=== PATIENT | male | born 1985 | race Caucasian/White ===

== ENCOUNTER 2023-09-20 15:11 | Emergency (ER) | payer BC, SELFPAY ==
[2023-09-20 15:13] VITALS: BP 123/79
--- NOTE | 2023-09-20 16:37 | ED.GENMED ---
History of Present Illness
General
Chief Complaint: Rabies
Source: patient
Exam Limitations: none
Time Seen by Provider: 09/20/23 16:05
Nursing documentation reviewed up to this point in time: agreed with
Travel History
Have you had any contact with someone who has COVID-19?: No
Do you have any symptoms of coronavirus? Fever > 100 degrees, chills, cough, shortness of breath, sore throat, loss of taste or smell, muscle aches, or headache?: No
History of Present Illness
History of Present Illness:
Patient is a 37-year-old male who is here for rabies vaccine. Patient dog got attacked by a miner and's he was in contact with his dog and his dog's wound and was sent here for rabies vaccine. He has no injuries.
Review of Systems
Review of Systems
Allergies reviewed?: Yes
All Other Systems: ROS reviewed and negative except as documented in HPI and ROS
Constitutional: Reports no symptoms
Respiratory: Reports no symptoms
Cardiac: Reports no symptoms
ABD/GI: Reports no symptoms
Skin: Reports no symptoms
Neurological: Reports no symptoms
Psychiatric: Reports no symptoms
Phy Exam
General Physical Exam
General Presentation: no apparent distress
General age: appears stated age
General Skin: warm and dry
General Habitus: normal
General Mental: alert
General Hydration: appears well hydrated
Neurological Exam
Neurological Exam: alert and oriented x3
Musculoskeletal Exam
Musculoskeletal Exam: full ROM
Skin Exam
Skin Exam: normal color and warm/dry
Psychiatric Exam
Psychiatric Exam: normal mood/affect
Course
Orders/Labs/Results
Orders:
Orders
09/20/23 16:53
Rabies Immune Globulin/Pf [HyperRAB] 1,832 unit IM NOW STA
09/20/23 17:00
Rabies Vaccine (Pcec)/Pf [Rabavert Rabies Vacc W-Diluent] 2.5 unit IM .ONCE ONE
Vital Signs
Initial and Last Documented VS:
Initial Vital Signs
Temp Pulse Resp BP Pulse Ox
98.3 F 78 20 123/79 97
09/20/23 15:13 09/20/23 15:13 09/20/23 15:13 09/20/23 15:13 09/20/23 15:13
Last Documented Vital Signs
Temp Pulse Resp BP Pulse Ox
98.3 F 78 20 123/79 97
09/20/23 15:13 09/20/23 15:13 09/20/23 15:13 09/20/23 15:13 09/20/23 15:13
MDM/Problems Addressed
Differential Diagnosis Includes:
not limited to: encounter for rabies vaccine
MDM/Problems Addressed:
Patient was given rabies immunoglobulin and vaccine as documented. Patient with no injuries
*Pulse Oximetry
Patient hypoxic: no
*Critical Care Note
Total Time (30-74mins, 75-104mins- exclusive of procedures): Not Applicable
ED Attending Note
-
Portions of this chart may have been created with voice recognition software.� Occasional wrong word or��sound alike� substitutions may have occurred due to the inherent limitations of voice recognition software.
Discharge Plan
Departure
Patient Disposition: Home (Routine Discharge)
Date of Disposition: 09/20/23
Time of Disposition: 17:56
Patient with high blood pressure during this ER visit?: No
Condition: Fair
Covid-19: Not Applicable
Discharge Problem:
encounter for rabies vacccine
Referrals:
Willie Krueger DO [Family Provider] -
Stand Alone Forms: Rabies Vaccine Post Exp Dosing
Activity Restrictions/Additional Instructions:
As discussed for additional rabies vaccines you may go to the infusion center peer return if any worsening of symptoms.
Interventions
Interventions:
*Risk Screen - Suicide Last Done: 09/20/23 15:13
*General Assessment Last Done: 09/20/23 15:13
*Neglect/Abuse Screening Last Done: 09/20/23 15:13
*Nursing Disposition Last Done: 09/20/23 18:26
Discharge Date and Time
Discharge Date/Time: 09/20/23 18:27
Print Language: BELARUSIAN
[2023-09-20] MEDS: RABAVERT RABIES VACC W-DILUENT 2.5 UNIT IM (17:39)
[2023-09-20] MEDS: HyperRAB 1832 UNIT IM (17:40)
== END 2023-09-20 18:27 | disposition home or self-care (01) ==
LOC: EMR 15:11
PROVIDERS: EMERGENCY PHYSICIAN Emergency Medicine; FAMILY PHYSICIAN Family Medicine
DX: Z23 Encounter for immunization (principal); Z20.3 Contact with and (suspected) exposure to rabies
CPT/HCPCS: 99284; 90471; 96372; 90375; 90675

== ENCOUNTER 2023-09-28 14:34 | Outpatient (RCR) | payer BC, SELFPAY ==
[2023-09-23 13:57] VITALS: BP 125/70
[2023-09-23] MEDS: RABAVERT RABIES VACC W-DILUENT 2.5 UNIT IM (14:04)
[2023-09-28 14:55] VITALS: BP 117/69
[2023-09-28] MEDS: RABAVERT RABIES VACC W-DILUENT 2.5 UNIT IM (15:07)
== END 2023-09-29 09:20 | disposition home or self-care (01) ==
LOC: OID 14:34
PROVIDERS: ATTENDING PHYSICIAN Emergency Medicine; FAMILY PHYSICIAN Family Medicine
DX: Z20.3 Contact with and (suspected) exposure to rabies (principal); Z23 Encounter for immunization
CPT/HCPCS: 90471; 90675

== ENCOUNTER 2023-10-04 15:12 | Outpatient (RCR) | payer BC, SELFPAY ==
[2023-10-04] MEDS: RABAVERT RABIES VACC W-DILUENT 2.5 UNIT IM (15:31)
[2023-10-04 15:37] VITALS: BP 125/79
== END 2023-10-05 08:28 | disposition home or self-care (01) ==
LOC: OID 15:12
PROVIDERS: ATTENDING PHYSICIAN Emergency Medicine; FAMILY PHYSICIAN Family Medicine
DX: Z20.3 Contact with and (suspected) exposure to rabies (principal); Z23 Encounter for immunization
CPT/HCPCS: 90471; 90675

== ENCOUNTER → 2025-02-20 10:30 | Outpatient (REF) | payer BC, SELFPAY | LOC: HWRAD 10:30 | PROVIDERS: ATTENDING PHYSICIAN Family Medicine | DX: T14.8XXA Other injury of unspecified body region, initial encounter (principal) | CPT/HCPCS: 73590 ==

== ENCOUNTER → 2025-03-13 14:06 | Outpatient (REF) | payer BC, SELFPAY | LOC: RAD 14:06 | PROVIDERS: ATTENDING PHYSICIAN Family Medicine | DX: R10.9 Unspecified abdominal pain (principal); K21.9 Gastro-esophageal reflux disease without esophagitis | CPT/HCPCS: 76700 ==

== ENCOUNTER 2025-04-04 10:30 | Observation (INO) | payer BC, SELFPAY ==
[2025-04-03 14:26] VITALS: BP 150/94
[2025-04-03 15:23] LABS: Hematocrit 42.8 % (39.0-52.0); Hemoglobin 15.0 g/dL (13.0-18.0); Mean Corp Hgb Conc. 35.0 g/dL (33.0-37.0); Mean Corpuscular Volume 85.9 fL (80.0-94.0); Nucleated Red Blood Cells % 0 % (-); Platelet Count 265 10^3/uL (130-400); Red Cell Dist. Width 11.9 % (11.5-14.5)
[2025-04-03 15:36] LABS: ALT (SGPT) 24 U/L (0-50); AST (SGOT) 23 U/L (17-59); Albumin 4.8 g/dl (3.5-5.0); Alkaline Phosphatase 79 U/L (38-126); Blood Urea Nitrogen 15 mg/dl (9-20); Calcium 9.7 mg/dl (8.4-10.2); Carbon Dioxide 30 mmol/L (22-30); Chloride 99 mmol/L (98-107); Glucose 72 mg/dl (70-99); Potassium 4.5 mmol/L (3.5-5.1); Sodium 136 mmol/L (135-145); Total Protein 7.9 g/dl (6.3-8.2); eGFR > 60.00
[2025-04-03] MEDS: ZOSYN 50 IV ×2 (15:48→21:27)
--- NOTE | 2025-04-03 16:13 | ED.GENMED ---
History of Present Illness
<Dirk Tovar PA-C - Last Filed: 04/03/25 16:53>
General
Chief Complaint: Abdominal Pain
Source: patient
Time Seen by Provider: 04/03/25 15:40
History of Present Illness
History of Present Illness:
39-year-old male with no significant past medical history presents to the emergency department for evaluation of right lower quadrant abdominal pain that has waxed and waned for around 1 week, had a CT scan ordered by his primary care provider as an
outpatient, sent to the ER after his CT scan showed acute appendicitis. Patient states that his pain is tolerable although when pressing in the right lower quadrant he does have considerable pain. He did not take anything for the pain prior to
arrival and is currently declining anything for the pain. Denies any fevers or infectious symptoms.
Past History
<Dirk Tovar PA-C - Last Filed: 04/03/25 16:53>
Past History
ED Past Medical History: None
ED Past Surgical History: Tonsilectomy and Urological
Social History
Tobacco: Non-smoker
Alcohol: Occasional
Drug: None
Personal:
Living: with family
Review of Systems
<Dirk Tovar PA-C - Last Filed: 04/03/25 16:53>
Review of Systems
All Other Systems: ROS reviewed and negative except as documented in HPI and ROS
Phy Exam
<Dirk Tovar PA-C - Last Filed: 04/03/25 16:53>
Physical Exam
Physical Exam:
GENERAL: Alert , in no apparent distress
EYE: clear conjunctiva b/l
HEAD: NCAT
ENT: mmm.
CARDIAC: Regular rate and rhythm .
LUNGS: Clear breath sounds bilaterally, no acute respiratory distress, no wheezes/rales/rhonchi
ABDOMEN: Soft, RLQ ttp with guarding.
NEUROLOGICAL: Alert and oriented
SKIN: Warm and dry, skin intact.
MUSCULOSKELETAL: No edema, well perfused.
PSYCH: Normal and appropriate interaction.
Scores
<Dirk Tovar PA-C - Last Filed: 04/03/25 16:53>
Heart Failure Risk
Heart Failure Risk Score: Not Applicable
Heart Score for Chest Pain Patients
STEMI patient?: Not applicable
Withdrawal Assessment of Alcohol
Withdrawal Assessment Completed?: Not applicable
Course
<Dirk Tovar PA-C - Last Filed: 04/03/25 16:53>
Orders/Labs/Results
Orders:
Orders
04/03/25 15:11
CMP [Comprehensive Metabolic Panel] Urgent
Complete Blood Count/With Diff Urgent
04/03/25 15:45
Piperacillin/Tazo 3.375 Gram [Zosyn] 3.375 gram in 50 ml IV NOW
04/03/25 16:46
Fentanyl Citrate/Pf [Sublimaze] 25 mcg IV [id number] PRN
HYDROmorphone [Dilaudid] 0.25 mg IV PACU-Q5MPRN PRN
HYDROmorphone [Dilaudid] 0.5 mg IV PACU-Q5MPRN PRN
Ondansetron Injectable [Zofran] 4 mg IV PACU-ONCEPRN PRN
Prochlorperazine [Compazine] 5 mg IV PACU-ONCEPRN PRN
Notify MD As Directed
Notify physician if: for SDS patients with known or suspected sleep obstructive sleep apnea, monitor in the
PACU.
Notify MD for any apneic/desaturation episodes
O2 Therapy [RESP] Urgent
Titrate/Wean O2 to maintain O2 sat greater than (%): 92
Special Instructions: -Provide supplemental oxygen to achieve O2 sat of 92% or greater.
-After 15 min, may wean O2 and discontinue if patient is able to maintain O2 sat of 92%
or greater during recovery period.
If patient is a discharge home, without oxygen therapy, notify anestheiologist if
unable to maintain O2 SAT of 92% or greater on room air for MD clearance.
04/03/25 17:00
Normosol (Mult Electrolytes) [Normosol-R/Plasmalyte-A] 1,000 ml IV PER PROTOCOL
04/03/25 15:11
04/03/25 15:11
Vital Signs
Initial and Last Documented VS:
Initial Vital Signs
Temp Pulse Resp BP Pulse Ox
36.6 C 56 18 150/94 100
04/03/25 14:26 04/03/25 14:26 04/03/25 14:26 04/03/25 14:26 04/03/25 14:26
Last Documented Vital Signs
Temp Pulse Resp BP Pulse Ox
36.6 C 56 18 150/94 100
04/03/25 14:26 04/03/25 14:26 04/03/25 14:26 04/03/25 14:26 04/03/25 16:13
Beault;Dedrick Flores, DO - Last Filed: 04/03/25 16:58>
Orders/Labs/Results
Orders:
Orders
04/03/25 15:11
CMP [Comprehensive Metabolic Panel] Urgent
Complete Blood Count/With Diff Urgent
04/03/25 15:45
Piperacillin/Tazo 3.375 Gram [Zosyn] 3.375 gram in 50 ml IV NOW
04/03/25 16:46
Fentanyl Citrate/Pf [Sublimaze] 25 mcg IV [id number] PRN
HYDROmorphone [Dilaudid] 0.25 mg IV PACU-Q5MPRN PRN
HYDROmorphone [Dilaudid] 0.5 mg IV PACU-Q5MPRN PRN
Ondansetron Injectable [Zofran] 4 mg IV PACU-ONCEPRN PRN
Prochlorperazine [Compazine] 5 mg IV PACU-ONCEPRN PRN
Notify MD As Directed
Notify physician if: for SDS patients with known or suspected sleep obstructive sleep apnea, monitor in the
PACU.
Notify MD for any apneic/desaturation episodes
O2 Therapy [RESP] Urgent
Titrate/Wean O2 to maintain O2 sat greater than (%): 92
Special Instructions: -Provide supplemental oxygen to achieve O2 sat of 92% or greater.
-After 15 min, may wean O2 and discontinue if patient is able to maintain O2 sat of 92%
or greater during recovery period.
If patient is a discharge home, without oxygen therapy, notify anestheiologist if
unable to maintain O2 SAT of 92% or greater on room air for MD clearance.
04/03/25 17:00
Normosol (Mult Electrolytes) [Normosol-R/Plasmalyte-A] 1,000 ml IV PER PROTOCOL
04/03/25 15:11
04/03/25 15:11
Vital Signs
Initial and Last Documented VS:
Initial Vital Signs
Temp Pulse Resp BP Pulse Ox
36.6 C 56 18 150/94 100
04/03/25 14:26 04/03/25 14:26 04/03/25 14:26 04/03/25 14:26 04/03/25 14:26
Last Documented Vital Signs
Temp Pulse Resp BP Pulse Ox
36.6 C 56 18 150/94 100
04/03/25 14:26 04/03/25 14:26 04/03/25 14:26 04/03/25 14:26 04/03/25 16:13
<Dirk Tovar PA-C - Last Filed: 04/03/25 16:53>
MDM/Problems Addressed
Differential Diagnosis Includes:
Known Appendicitis based off CT done as outpatient
MDM/Problems Addressed:
39 year old male presents to ED after outpatient CT scan showed acute appendicitis. Pain controlled. Will notify surgery. Advised to stay NPO.
<Dirk Tovar PA-C - Last Filed: 04/03/25 16:53>
*Radiology
Radiology exam reviewed: radiology read reviewed
*Pulse Oximetry
SaO2: 100
Oxygen Mode of Delivery: Room air
Patient hypoxic: no
*Critical Care Note
Total Time (30-74mins, 75-104mins- exclusive of procedures): Not Applicable
<Dirk Tovar PA-C - Last Filed: 04/03/25 16:53>
Patient Management
Discussion with other providers: Classifier Operator
Escalation/DeEscalation of care consider admission/obs:
General surgery to admit patient for acute appendicitis
ED Attending Note
<Dirk Tovar PA-C - Last Filed: 04/03/25 16:53>
-
Portions of this chart may have been created with voice recognition software.� Occasional wrong word or��sound alike� substitutions may have occurred due to the inherent limitations of voice recognition software.
<Dedrick Flores DO - Last Filed: 04/03/25 16:58>
ED Attending Note
I performed the substantive portion of visit, reviewed & personally made and approve the management plan that is documented in note by myself or MAGDIEL.: Yes
ED Attending Note:
I reviewed the case with the PA. White count normal. Outpatient CAT scan from 04-26 with oral and IV contrast which showed 6 appendicitis. Cipro was sent to the patient was taken to the OR for management.
Discharge Plan
Departure
Patient Disposition: Admit
Date of Disposition: 04/03/25
Time of Disposition: 16:13
Presentation/result/management discussed w/ accepting MD/DO: Dr. Rich
Discharge Problem:
Acute appendicitis
Prescriptions:
No Action
Theragen Tablet
1 tab PO DAILY
ibuprofen [Advil] 200 mg Tablet
200 mg PO Q6HPRN PRN (Reason: mild pain)
amoxicillin-pot clavulanate [Augmentin] 875-125 mg Tablet
1 tab PO BID
Rx Instructions:
for 10 days starting 04/02/25
Referrals:
Silvino Gutiérrez MD [Family Provider, Family Practice]
Interventions
Interventions:
*Risk Screen - Suicide Last Done: 04/03/25 14:22
*Neglect/Abuse Screening Last Done: 04/03/25 14:23
[facility] Fall Risk Assessment Tool Last Done: 04/03/25 15:39
DM-Jtunlw-Fhluqzdduq Assessment Last Done: 04/03/25 15:30
Discharge Date and Time
Print Language: MACEDONIAN
[2025-04-03 18:32] VITALS: BP 125/78; BMI 31.8
[2025-04-03] MEDS: TYLENOL 650 MG PO (21:27)
[2025-04-03 23:00] VITALS: BP 109/62
[2025-04-03 23:02] LABS: C-Reactive Protein 44.80 mg/L (0.0-10.00)
[2025-04-04] MEDS: TYLENOL PO (02:05)
[2025-04-04] MEDS: ZOSYN 50 IV ×2 (04:08→09:35)
[2025-04-04] MEDS: TYLENOL 650 MG PO ×2 (04:08→09:34)
--- NOTE | 2025-04-04 07:53 | W.PN.GS2 ---
Today's Communication / Plan
-
-- Regular diet
-- Abx: Zosyn, plan for 14 days total abx with PO Augmentin
-- DC pending dietary tolerance and labs
Assessment / Plan
-
Patient is a 39 yo M p/w acute appendicitis
AVSS
CRP elevated on admission, repeat pending
As noted on admission H&P, options for management were reviewed and given the delay in presentation and degree of appendicitis will trial a period of medical management with antibiotics in the hopes of delaying to interval appendectomy.
-- Regular diet
-- Pain control: Tylenol, Toradol, IV Dilaudid
-- Abx: Zosyn, plan for 14 days total abx with PO Augmentin
-- DVT: SCDs and ambulation
-- DC pending dietary tolerance and labs
Subjective Data
-
Date of Service: April 04, 2025
No new complaints. Pain feels similar to yesterday evening. No nausea or vomiting. Passing flatus. Afebrile.
Objective Data
-
Intake and Output
04/03/25 04/04/25 04/05/25
06:59 06:59 06:59
Intake Total 480 / 480
Balance 480 / 480
Intake:
Oral fluids 480 / 480
Other:
Number of approximated MODERATE 4
amounts of urine
Vital Signs
Temp Pulse Resp BP Pulse Ox
97.7 F 65 16 109/62 97
04/03/25 23:00 04/03/25 23:00 04/03/25 23:00 04/03/25 23:00 04/03/25 23:00
Lab Results
04/03/25 15:11
04/03/25 15:11
Calcium 9.7 mg/dl (8.4-10.2) 04/03/25 15:11
Total Bilirubin 1.0 mg/dl (0.2-1.3) 04/03/25 15:11
AST 23 U/L (17-59) 04/03/25 15:11
ALT 24 U/L (0-50) 04/03/25 15:11
Alkaline Phosphatase 79 U/L (38-126) 04/03/25 15:11
Total Protein 7.9 g/dl (6.3-8.2) 04/03/25 15:11
Albumin 4.8 g/dl (3.5-5.0) 04/03/25 15:11
Physical Exam
-
Gen: NAD
Abd: soft, mild tenderness in RLQ (improved), ND, non-peritoneal
Patient has a palomares catheter: No
Patient has a central line: No
[2025-04-04 07:59] VITALS: BP 125/71
[2025-04-04 09:59] LABS: C-Reactive Protein 35.80 mg/L (0.0-10.00)
--- NOTE | 2025-04-04 10:20 | CM ---
Patient seen at bedside
discharge today
IA completed
OBS status - form explained & signed. In chart
Lives with in 1 story home
PLOF: independent
Denies DME
Denies VN/Rehab
Denies insecurities
PCP: Dr. Gutiérrez
Pharmacy: [address], [place]
PLAN: Home, no needs
to transport
== END 2025-04-04 11:36 | disposition home or self-care (01) ==
LOC: 3 WEST ACU 10:30
PROVIDERS: ADMITTING PHYSICIAN Surgery; ATTENDING PHYSICIAN Surgery; EMERGENCY PHYSICIAN Emergency Medicine; FAMILY PHYSICIAN Family Medicine
DX: K35.80 Unspecified acute appendicitis (principal)
CPT/HCPCS: 74177; 80053; 85025; 86140; 96365; 99284; G0378; Q9967

== ENCOUNTER → 2025-04-18 08:01 | Outpatient (REF) | payer BC, SELFPAY | LOC: RAD 08:01 | PROVIDERS: ATTENDING PHYSICIAN Surgery; FAMILY PHYSICIAN Family Medicine | DX: K35.80 Unspecified acute appendicitis (principal) | CPT/HCPCS: 74177; Q9967 ==

== ENCOUNTER 2025-04-27 11:21 | Emergency (ER) | payer BC, SELFPAY ==
[2025-04-27 11:23] VITALS: BP 127/83
[2025-04-27 11:54] LABS: Hematocrit 42.3 % (39.0-52.0); Hemoglobin 14.6 g/dL (13.0-18.0); Mean Corp Hgb Conc. 34.5 g/dL (33.0-37.0); Mean Corpuscular Volume 87.8 fL (80.0-94.0); Nucleated Red Blood Cells % 0 % (-); Platelet Count 166 10^3/uL (130-400); Red Cell Dist. Width 12.4 % (11.5-14.5)
[2025-04-27 12:26] LABS: ALT (SGPT) 39 U/L (0-50); AST (SGOT) 32 U/L (17-59); Albumin 4.4 g/dl (3.5-5.0); Alkaline Phosphatase 45 U/L (38-126); Blood Urea Nitrogen 20 mg/dl (9-20); Calcium 9.1 mg/dl (8.4-10.2); Carbon Dioxide 27 mmol/L (22-30); Chloride 97 mmol/L (98-107); Glucose 105 mg/dl (70-99); Lipase 47 U/L (23-300); Potassium 4.1 mmol/L (3.5-5.1); Sodium 133 mmol/L (135-145); Total Protein 6.9 g/dl (6.3-8.2); eGFR > 60.00
--- NOTE | 2025-04-27 14:17 | ED.GENMED ---
History of Present Illness
General
Chief Complaint: Abdominal Symptoms
Source: patient
Exam Limitations: none
Time Seen by Provider: 04/27/25 14:16
Nursing documentation reviewed up to this point in time: agreed with
History of Present Illness
History of Present Illness:
Patient is a 39-year-old male presents to the ER for evaluation. Patient is currently being treated by Dr. Rich on outpatient antibiotics for appendicitis. Patient has been on antibiotics since April 04. He also saw Dr. Rich Apr 19
who recommended another 2 wks of augmentin. Patient reports he has been taking probiotics while being on Augmentin. Has had occasional diarrhea however last night had increased amount of diarrhea. He reports he had at least 10 episodes of
diarrhea and vomited also 5�6 times. He last vomited at 2 AM and had diarrhea in the waiting room. He denies any new abdominal pain.
He has mild right lower residual pain which is not new.
He denies any associated fevers.
No other sick contacts at home.
Currently he does not feel nauseous and does not feel that he has to have any more diarrhea.
Past History
Past History
ED Past Medical History: None
ED Past Surgical History: Tonsilectomy and Urological
Social History
Tobacco: Non-smoker
Alcohol: Occasional
Drug: None
Personal:
Living: with family
Phy Exam
General Physical Exam
General Presentation: no apparent distress
General age: appears stated age
Course
Orders/Labs/Results
Orders:
Orders
04/27/25 11:34
Complete Blood Count/With Diff Urgent
Comprehensive Metabolic Panel Urgent
Lipase Urgent
04/27/25 14:37
C DIFF [C difficile Antigen & Toxins] Urgent
JESSENIA Source: Feces/Stool
Specimen Description:
Stool Culture Urgent
JESSENIA Source: Feces/Stool
Specimen Description:
0.9% Sodium Chloride 1000 ml [Nss] 1,000 ml IV BOLUS
Ondansetron Injectable [Zofran] 4 mg IV NOW STA
04/27/25 17:01
Ketorolac [Toradol] 15 mg IV NOW STA
Abnormal Lab Results
04/27/25
11:34
MPV 10.7 H fL
(7.4-10.4)
Absolute Lymphs (auto) 0.4 L 10^3/uL
(1.2-3.4)
Neutrophils % 89.5 H %
(42.2-75.2)
Lymphocytes % 6.3 L %
(20.5-51.1)
Sodium 133 L mmol/L
(135-145)
Chloride 97 L mmol/L
(98-107)
Glucose 105 H mg/dl
(70-99)
Total Bilirubin 1.8 H mg/dl
(0.2-1.3)
04/27/25 11:34
04/27/25 11:34
Vital Signs
Initial and Last Documented VS:
Initial Vital Signs
Temp Pulse Resp BP Pulse Ox
98.1 F 112 18 127/83 99
04/27/25 11:23 04/27/25 11:23 04/27/25 11:23 04/27/25 11:23 04/27/25 11:23
Last Documented Vital Signs
Temp Pulse Resp BP Pulse Ox
100.1 F 84 18 107/60 98
04/27/25 14:39 04/27/25 15:45 04/27/25 15:45 04/27/25 15:45 04/27/25 15:45
Braille Transcriber consulted with Physician
Braille Transcriber consulted with physician?: Yes
Name of Physician Consulted: shannon
MDM/Problems Addressed
Differential Diagnosis Includes:
Not limited to C. difficile, dehydration, viral syndrome
MDM/Problems Addressed:
As documented patient is a 39-year-old male being treated by Dr. Rich for for appendicitis on oral antibiotics. He has been on Augmentin for the past several weeks. He recently saw Dr. Rich for April 19 and recommended 2 more weeks of
biotics. He started with vomiting diarrhea last night. Last episode of vomiting was at 2 AM diarrhea was in the waiting room. He presents awake alert no acute distress.
patient was given fluids I did order C. difficile culture however patient was not able to give stool specimen here. He is well-appearing with normal white count low grade temp of 100.1.
Patient denies any abdominal pain .on exam he has very minimal right lower quadrant pain if any and reports this is actually improving since he has been on antibiotics for the appendicitis. He has not had any further vomiting here and has been
drinking fluids well. no diarrhea here in the ED treatment area. possible viral syndrome. Surg, DR Arango made aware .
Stable for discharge home.
*Pulse Oximetry
SaO2: 99
Oxygen Mode of Delivery: Room air
Patient hypoxic: no
*Critical Care Note
Total Time (30-74mins, 75-104mins- exclusive of procedures): Not Applicable
Data Reviewed
Review of Other/Old Records Reveals: Labs and Discharge Summary
Source: patient
Patient Management
Discussion with other providers: Vb Developer (surg DR Arango )
ED Attending Note
-
Portions of this chart may have been created with voice recognition software.� Occasional wrong word or��sound alike� substitutions may have occurred due to the inherent limitations of voice recognition software.
Discharge Plan
Departure
Patient Disposition: Home (Routine Discharge)
Date of Disposition: 04/27/25
Time of Disposition: 17:36
Patient with high blood pressure during this ER visit?: No
Condition: Fair
Covid-19: Not Applicable
Discharge Problem:
Nausea, vomiting and diarrhea
Instructions: Diarrhea in teens and adults, Nausea and Vomiting, Adult (DC)
Prescriptions:
No Action
therapeutic multivitamin Tablet
1 tab PO DAILY
ibuprofen [Advil] 200 mg Tablet
200 mg PO Q6HPRN PRN (Reason: mild pain)
Referrals:
Silvino Gutiérrez MD [Family Provider, Family Practice]
Brent Rich MD [Active, Surgical]
Activity Restrictions/Additional Instructions:
As discussed continue antibiotics. Follow-up with family doctor in the next several days and follow up with your surgeon for re-evaluation of your symptoms.
your bilirubin was mildly elevated.
please have this rechecked by your family doctor. Return to the ER for any worsening of symptoms including increasing vomiting diarrhea abdominal pain fever chills or any further concerns.
Interventions
Interventions:
*General Assessment Last Done: 04/27/25 11:23
*Neglect/Abuse Screening Last Done: 04/27/25 11:23
*ED COVID-19 Vaccine History Last Done: 04/27/25 11:23
*ED Influenza Vaccine History Last Done: 04/27/25 11:23
[facility] Fall Risk Assessment Tool Last Done: 04/27/25 14:28
*Risk Screen - Suicide (C-SSRS) Last Done: 04/27/25 11:23
CZ-Cqayqi-Qxauaprdyo Assessment Last Done: 04/27/25 16:12
Discharge Date and Time
Print Language: PUERTO RICAN
[2025-04-27 14:28] VITALS: BMI 33.4
[2025-04-27 14:39] VITALS: BP 113/70
[2025-04-27] MEDS: NSS 1000 IV (15:02)
[2025-04-27] MEDS: ZOFRAN 4 MG IV (15:02)
[2025-04-27 15:45] VITALS: BP 107/60
[2025-04-27] MEDS: TORADOL 15 MG IV (17:09)
== END 2025-04-27 17:59 | disposition home or self-care (01) ==
LOC: EMR 11:21
PROVIDERS: Student in an Organized Health Care Education/Training Program; EMERGENCY PHYSICIAN Emergency Medicine; FAMILY PHYSICIAN Family Medicine
DX: R11.2 Nausea with vomiting, unspecified (principal); R19.7 Diarrhea, unspecified; R10.31 Right lower quadrant pain; R50.9 Fever, unspecified; K37 Unspecified appendicitis
CPT/HCPCS: 99284; 96374; 96375; 96361 ×2; 80053; 83690; 85025

== ENCOUNTER 2025-05-02 06:00 | Day surgery (SDC) | payer BC, SELFPAY ==
[2025-05-02] VITALS (10 sets, daily range): BP systolic 109–122; BP diastolic 65–75; BMI 31.9
[2025-05-02] MEDS: TYLENOL 1000 MG PO (06:57)
[2025-05-02] MEDS: NORMOSOL-R/PLASMALYTE-A 1000 IV (07:03)
[2025-05-02] MEDS: DILAUDID 1 MG IV (08:56)
== END 2025-05-02 11:05 | disposition home or self-care (01) ==
LOC: SDS 06:00
PROVIDERS: ATTENDING PHYSICIAN Surgery
DX: K35.80 Unspecified acute appendicitis (principal); K38.1 Appendicular concretions
CPT/HCPCS: 44970; 88304